=== PATIENT | male | born 1990 | race Caucasian/White ===

== ENCOUNTER 2019-02-10 18:18 | Emergency (ER) | payer BC ==
[~2019-02-10 18:18] MED LIST: CEPH-568 PO; INSU100V26 SQ; INSU100V9 SQ; NORCO5 PO
--- NOTE | 2019-02-10 18:48 | NUR ---
patient called to triage. patient not in waiting room
--- NOTE | 2019-02-10 19:16 | NUR ---
patient called again for triage. not in waiting room
--- NOTE | 2019-02-10 19:16 | NUR ---
Patient left without being seen. No further treatment provided. ER MD aware
== END 2019-02-10 18:48 | disposition left against medical advice (07) ==
LOC: SED 18:18
DX: M79.676 Pain in unspecified toe(s) (principal); Z53.21 Procedure and treatment not carried out due to patient leaving prior to being seen by health care provider